=== PATIENT | male | born 1950 | race Native Hawaiian/Other Pacific Islander ===

== ENCOUNTER 2019-07-25 14:24 | Outpatient (CLI) | payer OTHER ==
[2019-07-25 15:11] LABS: PLATELET COUNT 269 K/uL (142-355)
[2019-07-25 15:24] LABS: POTASSIUM 4.2 mmol/L (3.6-5.2)
== END 2019-07-25 19:41 | disposition home or self-care (01) ==
LOC: LAB 14:24
PROVIDERS: Nurse Practitioner Family
DX: Z00.00 Encounter for general adult medical examination without abnormal findings (principal); I10 Essential (primary) hypertension; Z79.899 Other long term (current) drug therapy; R53.83 Other fatigue; R53.81 Other malaise; E66.9 Obesity, unspecified
CPT/HCPCS: 80053; 80061; 83036; 84439; 84443; 85027

== ENCOUNTER 2019-11-02 14:54 | Outpatient (CLI) | payer OTHER | END 2019-11-02 19:31 | disposition home or self-care (01) | LOC: LAB 14:54 | DX: Z00.00 Encounter for general adult medical examination without abnormal findings (principal); E66.8 Other obesity; Z79.899 Other long term (current) drug therapy; I10 Essential (primary) hypertension; R53.83 Other fatigue | CPT/HCPCS: 83036; 84439 ==

== ENCOUNTER 2021-06-21 14:12 | Outpatient (CLI) | payer OTHER | END 2021-06-21 22:05 | disposition home or self-care (01) | LOC: RAD 14:12 | PROVIDERS: ATTEND Nurse Practitioner Family | DX: R06.02 Shortness of breath (principal) ==

== ENCOUNTER 2022-07-07 09:48 | Outpatient (CLI) | payer OTHER | END 2022-07-07 19:21 | disposition home or self-care (01) | LOC: RAD 09:48 | PROVIDERS: ATTEND Nurse Practitioner Family | DX: M54.40 Lumbago with sciatica, unspecified side (principal) ==

== ENCOUNTER 2023-07-28 16:30 | Outpatient (CLI) | payer OTHER ==
[2023-07-28 20:15] LABS: PLATELET COUNT 382 K/uL (142-355)
[2023-07-29 04:29] LABS: POTASSIUM 3.9 mmol/L (3.6-5.2)
== END 2023-07-28 19:46 | disposition home or self-care (01) ==
LOC: LAB 16:30
PROVIDERS: ATTEND Nurse Practitioner Family
DX: E11.9 Type 2 diabetes mellitus without complications (principal); I10 Essential (primary) hypertension; E78.49 Other hyperlipidemia; E55.9 Vitamin D deficiency, unspecified; E66.9 Obesity, unspecified; R53.83 Other fatigue; Z79.899 Other long term (current) drug therapy; M10.9 Gout, unspecified
CPT/HCPCS: 80053; 80061; 82306; 83036; 84439; 84443; 84550; 85027